=== PATIENT | male | born 1950 | race Caucasian/White ===

== ENCOUNTER 2018-08-19 12:36 | Inpatient (IN) ==
--- NOTE | 2018-08-19 12:51 | Emergency Department Note ---
General Adult HPI - General Chief complaint: Weakness Stated complaint: weakness, increased urination Time Seen by Provider: 08/19/18 12:46 Source: patient Mode of arrival: ambulatory Limitations: no limitations - History of Present Illness HPI Narrative: 68 year old male new to [facility] with history of CHF managed on Amlodipine 10mg twice daily, Nebivolol 20mg daily, Lisinopril-HCTZ 20-12.5 2 tablet daily, Furosemide 40mg daily, hasn't taken any of these medications in the past week, with history of DM type II, managed on Meformin 1000mg twice daily, unknown what or when last A1c was presenting with generalized weakness, fatigue over the past 3 days. No dyspnea at rest, mild dyspnea with exertion. No fevers, chills nor sweats. - Related Data Home Medications Medication Instructions Recorded Confirmed Aspirin [Lite Coat Aspirin] 325 mg PO DAILY 08/19/18 08/19/18 Atorvastatin [Lipitor] 40 mg PO HS 08/19/18 08/19/18 Furosemide [Lasix] 40 mg PO DAILY 08/19/18 08/19/18 Glimepiride [Amaryl] 2 mg PO BID 08/19/18 08/19/18 Lisinopril/Hctz 20/12.5MG 2 tab PO DAILY 08/19/18 08/19/18 [Zestoretic 20/12.5MG] Naproxen Sodium [All Day Pain 3 tab PO DAILY PRN 08/19/18 08/19/18 Relief] Nebivolol HCl [Bystolic] 20 mg PO DAILY 08/19/18 08/19/18 amLODIPine [Norvasc] 10 mg PO DAILY 08/19/18 08/19/18 metFORMIN [Glucophage] 1,000 mg PO BIDCC 08/19/18 08/19/18 Allergies Allergy/AdvReac Type Severity Reaction Status Date / Time No Known Drug Allergies Allergy Verified 08/19/18 12:40 Review of Systems All systems ED: reviewed and negative except as stated. Past Medical History - Past Medical History Attestation: Yes: The following information was validated with the patient. - Social History smoking status: Former smoker Physical Exam Limitations: no limitations General appearance: alert, in distress Head: atraumatic, normocephalic Eye: Present: normal appearance, PERRL, EOMI ENT: normal exam, normal oropharynx, mucous membranes dry Neck: Present: normal inspection, full ROM Chest: Present: normal inspection, symmetric chest wall rise Respiratory: Present: normal lung sounds bilaterally. Absent: respiratory distress, rales/crackles, wheezes Cardiovascular: Present: regular rate, normal rhythm, normal heart sounds Abdominal: Present: soft. Absent: distention, tenderness, guarding Course Vital Signs Temperature 97.5 F 08/19/18 12:36 Pulse Rate 50 L 08/19/18 12:36 Respiratory Rate 16 08/19/18 12:36 Blood Pressure 146/118 08/19/18 12:36 Pulse Oximetry (%) 99 08/19/18 12:36 Temperature 97.2 F 08/19/18 16:06 Pulse Rate 59 L 08/20/18 07:01 Respiratory Rate 13 08/20/18 07:01 Blood Pressure 136/65 08/20/18 07:01 Pulse Oximetry (%) 98 08/20/18 07:01 Medical Decision Making - [facility] [place] Narrative Medical decision making narrative: Patient presenting in DKA, with glucose 600, beta hydroxybutyrate of 7. Given 10 units insulin x 2 bolus, started on 0.1u/kg/hr insulin drip. potassium 5.5, monitored. patient found to be in atrial fibrillation with RVR, rate controlled with IV Labetaolol 10mg. Admitted to hospitalist service, Dr. Grijalva accepting admission. - Lab Data Lab results reviewed: Yes I reviewed the patient's lab results. Result diagrams: 08/20/18 04:15 08/20/18 04:15 Lab Results 08/19/18 08/19/18 08/19/18 Range/Units 12:22 12:22 12:54 WBC (4.5-11.0) K/mcL RBC (4.50-5.90) M/mcL Hgb (13.5-16.5) g/dL Hct (41.0-55.0) % POC Hct (41.0-55.0) % MCV (80.0-100.0) fL MCH (26.0-34.0) pg MCHC (31.0-36.0) g/dL RDW (11.5-14.5) % Plt Count (140-440) K/mcL MPV (7.4-10.4) fL Gran % (38.0-78.0) % Lymph % (Auto) (15.5-49.0) % [place] % (Auto) (1.0-12.0) % Eos % (Auto) (0.0-7.0) % Baso % (Auto) (0.0-2.0) % Gran # (1.8-8.0) K/mcL Lymph # (Auto) (1.5-4.8) K/mcL [place] # (Auto) (0.1-0.9) K/mcL Eos # (Auto) (0.0-0.7) K/mcL Baso # (Auto) (0.0-0.3) K/mcL VBG Lactic Acid (0.5-2.0) mmol/L POC Sodium (133-145) mmol/L Sodium 130 L (133-145) mmol/L POC Potassium (3.3-5.1) mmol/L Potassium 5.7 H (3.3-5.1) mmol/L POC Chloride (96-108) mmol/L Chloride 88 L (96-108) mmol/L Carbon Dioxide 14 L (22-30) mmol/L POC Total CO2 (22-30) mmol/L Anion Gap 28.0 H (8-16) POC BUN (8-23) mg/dl BUN 32 H (8-23) mg/dl Creatinine 1.2 (0.7-1.2) mg/dl POC Creatinine (0.7-1.2) mg/dl GFR Calculation 61 Glucose 517 H* (70-105) mg/dL POC Glucose (70-105) mg/dL Calcium 9.4 (8.6-10.4) mg/dl POC WB Ioniz Calcium (1.16-1.32) mmol/L Total Bilirubin 0.6 (0.0-1.0) mg/dL AST 21 (0-37) U/l ALT 26 (0-40) U/l Alkaline Phosphatase 128 H (39-117) U/L Troponin T (0-0.03) ng/ml NT-Pro-B Natriuret Pep 635.6 H (0-125) pg/ml Total Protein 7.2 (5.9-8.4) gm/dL Albumin 3.9 (3.2-5.2) gm/dL Globulin 3.3 (2.2-3.7) gm/dL Albumin/Globulin Ratio 1.2 (1.0-2.3) Amylase 64 (28-100) U/L Lipase 92 H (7-60) U/L Beta-Hydroxybutyrate (< 0.27) mmol/L Procalcitonin < 0.10 (<0.10) ng/mL 08/19/18 08/19/18 08/19/18 Range/Units 12:55 12:55 12:55 WBC 18.7 H (4.5-11.0) K/mcL RBC 5.53 (4.50-5.90) M/mcL Hgb 17.2 H (13.5-16.5) g/dL Hct 52.3 (41.0-55.0) % POC Hct 53.0 (41.0-55.0) % MCV 94.7 (80.0-100.0) fL MCH 31.1 (26.0-34.0) pg MCHC 32.8 (31.0-36.0) g/dL RDW 12.7 (11.5-14.5) % Plt Count 300 (140-440) K/mcL MPV 10.8 H (7.4-10.4) fL Gran % 77.4 (38.0-78.0) % Lymph % (Auto) 18.3 (15.5-49.0) % [place] % (Auto) 4.0 (1.0-12.0) % Eos % (Auto) 0.1 (0.0-7.0) % Baso % (Auto) 0.2 (0.0-2.0) % Gran # 14.5 H (1.8-8.0) K/mcL Lymph # (Auto) 3.4 (1.5-4.8) K/mcL [place] # (Auto) 0.7 (0.1-0.9) K/mcL Eos # (Auto) 0 (0.0-0.7) K/mcL Baso # (Auto) 0 (0.0-0.3) K/mcL VBG Lactic Acid (0.5-2.0) mmol/L POC Sodium 130 L (133-145) mmol/L Sodium (133-145) mmol/L POC Potassium 5.5 H (3.3-5.1) mmol/L Potassium (3.3-5.1) mmol/L POC Chloride 96 (96-108) mmol/L Chloride (96-108) mmol/L Carbon Dioxide (22-30) mmol/L POC Total CO2 17 L (22-30) mmol/L Anion Gap (8-16) POC BUN 34 H (8-23) mg/dl BUN (8-23) mg/dl Creatinine (0.7-1.2) mg/dl POC Creatinine 1.1 (0.7-1.2) mg/dl GFR Calculation Glucose (70-105) mg/dL POC Glucose 498 H* (70-105) mg/dL Calcium (8.6-10.4) mg/dl POC WB Ioniz Calcium 1.09 L (1.16-1.32) mmol/L Total Bilirubin (0.0-1.0) mg/dL AST (0-37) U/l ALT (0-40) U/l Alkaline Phosphatase (39-117) U/L Troponin T < 0.01 (0-0.03) ng/ml NT-Pro-B Natriuret Pep (0-125) pg/ml Total Protein (5.9-8.4) gm/dL Albumin (3.2-5.2) gm/dL Globulin (2.2-3.7) gm/dL Albumin/Globulin Ratio (1.0-2.3) Amylase (28-100) U/L Lipase (7-60) U/L Beta-Hydroxybutyrate 7.01 H (< 0.27) mmol/L Procalcitonin (<0.10) ng/mL 08/19/18 Range/Units 13:06 WBC (4.5-11.0) K/mcL RBC (4.50-5.90) M/mcL Hgb (13.5-16.5) g/dL Hct (41.0-55.0) % POC Hct (41.0-55.0) % MCV (80.0-100.0) fL MCH (26.0-34.0) pg MCHC (31.0-36.0) g/dL RDW (11.5-14.5) % Plt Count (140-440) K/mcL MPV (7.4-10.4) fL Gran % (38.0-78.0) % Lymph % (Auto) (15.5-49.0) % [place] % (Auto) (1.0-12.0) % Eos % (Auto) (0.0-7.0) % Baso % (Auto) (0.0-2.0) % Gran # (1.8-8.0) K/mcL Lymph # (Auto) (1.5-4.8) K/mcL [place] # (Auto) (0.1-0.9) K/mcL Eos # (Auto) (0.0-0.7) K/mcL Baso # (Auto) (0.0-0.3) K/mcL VBG Lactic Acid 2.1 H (0.5-2.0) mmol/L POC Sodium (133-145) mmol/L Sodium (133-145) mmol/L POC Potassium (3.3-5.1) mmol/L Potassium (3.3-5.1) mmol/L POC Chloride (96-108) mmol/L Chloride (96-108) mmol/L Carbon Dioxide (22-30) mmol/L POC Total CO2 (22-30) mmol/L Anion Gap (8-16) POC BUN (8-23) mg/dl BUN (8-23) mg/dl Creatinine (0.7-1.2) mg/dl POC Creatinine (0.7-1.2) mg/dl GFR Calculation Glucose (70-105) mg/dL POC Glucose (70-105) mg/dL Calcium (8.6-10.4) mg/dl POC WB Ioniz Calcium (1.16-1.32) mmol/L Total Bilirubin (0.0-1.0) mg/dL AST (0-37) U/l ALT (0-40) U/l Alkaline Phosphatase (39-117) U/L Troponin T (0-0.03) ng/ml NT-Pro-B Natriuret Pep (0-125) pg/ml Total Protein (5.9-8.4) gm/dL Albumin (3.2-5.2) gm/dL Globulin (2.2-3.7) gm/dL Albumin/Globulin Ratio (1.0-2.3) Amylase (28-100) U/L Lipase (7-60) U/L Beta-Hydroxybutyrate (< 0.27) mmol/L Procalcitonin (<0.10) ng/mL - EKG Data EKG #1 Rate: tachycardia Rhythm: A.Fib Interpretation: other (atrial fibrillation with RVR) Disposition Pt seen by [facility]/PA only: No Clinical Impression: DKA (diabetic ketoacidoses) Qualifiers: Diabetes mellitus type: type 1 Diabetes mellitus complication detail: without coma Qualified Code(s): E10.10 - Type 1 diabetes mellitus with ketoacidosis without coma Disposition: Xfer As Inpt ([facility]) Condition: Fair
[2018-08-19] MEDS ORDERED: LABETALOL 5 MG/ML ML IV ONE (12:59)
[2018-08-19] MEDS ORDERED: INSULIN REGULAR, HUMAN 1 UNIT/0.01 ML UNIT IV ONE ×2 (12:59→14:12)
[2018-08-19 13:33] LABS: Basophils # (Auto) 0 K/mcL (0.0-0.3); Basophils % (Auto) 0.2 % (0.0-2.0); Eosinophils # (Auto) 0 K/mcL (0.0-0.7); Eosinophils % (Auto) 0.1 % (0.0-7.0); Granulocytes % (Auto) 77.4 % (38.0-78.0); Lymphocytes # (Auto) 3.4 K/mcL (1.5-4.8); Lymphocytes % (Auto) 18.3 % (15.5-49.0); Mean Cell Volume 94.7 fL (80.0-100.0); Mean Corpuscular HGB Conc 32.8 g/dL (31.0-36.0); Monocytes # (Auto) 0.7 K/mcL (0.1-0.9); Platelet Count 300 K/mcL (140-440); RBC 5.53 M/mcL (4.50-5.90); Red Cell Distribution Width 12.7 % (11.5-14.5)
--- NOTE | 2018-08-19 13:51 | XRay Report ---
INDICATION: Weakness TECHNIQUE: PA and lateral upright chest x-ray COMPARISON: None FINDINGS:Lungs are negative. No parenchymal infiltrate or mass. No focal pulmonary parenchymal abnormality. Heart size and vascularity are normal. Lise and mediastinum are negative. No acute or focal abnormality. IMPRESSION: Negative PA and lateral chest x-ray Interpreted and Authenticated by: Ant Bui 08/19/18
[2018-08-19 13:57] LABS: ALT/SGPT 26 U/l (0-40); Albumin 3.9 gm/dL (3.2-5.2); Albumin/Globulin Ratio 1.2 (1.0-2.3); Alkaline Phosphatase 128 U/L (39-117); Blood Urea Nitrogen 32 mg/dl (8-23); proBNP 635.6 pg/ml (0-125)
[2018-08-19 14:06] LABS: Beta Hydroxybutyrate 7.01 mmol/L (< 0.27)
[2018-08-19] MEDS ORDERED: 0.9 % SODIUM CHLORIDE 1,000 ML IV ONE (14:15)
[2018-08-19] MEDS ORDERED: INSULIN REGULAR, HUMAN 50 UNIT in 0.9 % SODIUM CHLORIDE 99.5 ML IV SCH ×2 (14:15→16:06)
[2018-08-19] MEDS ORDERED: DILTIAZEM 25 MG/5 ML VIAL IV ONE ×3 (14:22→16:21)
--- NOTE | 2018-08-19 15:04 | Internal Med History&Physical ---
Medical - H&P: [facility] Patient information: Note initiated : 08/19/18 at 3:01 pm Service Date, if different from initiated Date: [] Patient: Nitin Oreilly a 68 y/o M admitted on for weakness, increased urination. Chief Complaint: [] History of present illness: Mr. Oreilly is a 68 year old M with history of hypertension and diabetes presents to the emergency room for not feeling well, increased thirst weakness and polyuria that has been going on for the last 4 to 5 days. The patient is a resident of [place], he drove here 4 days ago, the patient notes that he has not been feeling well since, his symptoms are increased thirst, increased desire to pee, the patient also complains about abdominal pain for the last 3 to 4 days epigastric periumbilical in nature dull ache intermittent in nature nonradiating no aggravating relieving factors feels like he wants to eat something but thinks that if he tries to eat something he will vomit. The patient denies any fever chills some nausea if he tries to eat otherwise no vomiting last bowel movement 2 days ago is passing gas no cough no chest pain no shortness of breath no palpitations or dizziness no headache changes in vision no difficulty in swallowing no new skin rashes joint pains no depression or anxiety reported. He was seen by a new doctor in [place] according to him made some changes to his medications. He takes metformin for his diabetes as well as some blood pressure pills. On presentation to the emergency room patient was afebrile heart rate 140 blood pressure 146 oh 118 saturating 99% on room air chest x-ray was negative labs showed leukocytosis 18.7 hemoglobin 17.2 platelets 300 lactic acid 2.1 anion gap 28 sodium 130 potassium 5.7 bicarbonate 14 chloride 88 creatinine 1.2 glucose 517 by the hydroxybutyrate 7.01 Patient was given IV fluids started on insulin drip given some Cardizem and admitted to the hospital for further management All systems: reviewed and no additional remarkable complaints except as stated Medical - H&P: PMH Medical history: DM HTN Obesity Surgical history: Right index finger amputation Family history: reviewed and not pertinent Pertinent family history: Mother with DM Social history: denies drug use, last etoh 15 yrs ago quit smoking 1 yr ago Medical - H&P: Meds Home Medications Medication Instructions Recorded Confirmed Type Atorvastatin [Lipitor] 40 mg PO HS 05/11/19 05/11/19 History Furosemide [Lasix] 40 mg PO DAILY 08/19/18 08/19/18 History Glimepiride [Amaryl] 2 mg PO BID 08/19/18 08/19/18 History Lisinopril/Hctz 20/12.5MG 2 tab PO DAILY 08/19/18 08/19/18 History [Zestoretic 20/12.5MG] Nebivolol HCl [Bystolic] 20 mg PO DAILY 08/19/18 08/19/18 History amLODIPine [Norvasc] 10 mg PO DAILY 08/19/18 08/19/18 History metFORMIN [Glucophage] 1,000 mg PO BIDCC 08/19/18 08/19/18 History Allergies Allergy/AdvReac Type Severity Reaction Status Date / Time No Known Drug Allergies Allergy Verified 08/19/18 12:40 Medical - H&P: Exam - Constitutional Vitals: Temp Pulse Resp BP Pulse Ox 97.5 F 79 26 H 112/87 96 08/19/18 12:36 08/19/18 14:31 08/19/18 14:49 08/19/18 14:47 08/19/18 14:31 Exam: GENERAL: The patient is a well-developed, well-nourished in no apparent distress. Is alert and oriented x3. VITAL SIGNS: Reviewed and as noted elsewhere. HEENT: Head is normocephalic and atraumatic. Extraocular muscles are intact. Pupils are equal, round, and reactive to light. Nares appeared normal. Mouth appears any without lesions. Mucous membranes are dry. NECK: Normal to inspection, Supple, No lymphadenopathy or thyromegaly. LUNGS: Air entry equal on both sides, no wheezing, crackles or rhonchi noted. No accessory muscles of respiration HEART: tachycardic, irregular rate and rhythm , S1 and S2 heard, no Gallop, S3 or Rub Noted, No Gross murmur heard. ABDOMEN: Soft, nontender, and nondistended. Positive bowel sounds. No hepatosplenomegaly was noted. EXTREMITIES: No cyanosis, clubbing, rash, lesions or edema. NEUROLOGIC: Cranial nerves II through XII are grossly intact. Motor and Sensory System Grossly Intact PSYCHIATRIC: Normal affect, Normal Mood. Appropriate Behavior. SKIN: No ulceration or wounds noted, No jaundice, No rash noted. Medical - H&P: Reslt - Labs CBC & Chem 7: 08/19/18 12:55 08/19/18 12:54 Labs: Short CBC 08/19/18 Range/Units 12:55 WBC 18.7 H (4.5-11.0) K/mcL Hgb 17.2 H (13.5-16.5) g/dL Hct 52.3 (41.0-55.0) % Plt Count 300 (140-440) K/mcL BMP 08/19/18 12:54 Sodium 130 L Potassium 5.7 H Chloride 88 L Carbon Dioxide 14 L BUN 32 H Creatinine 1.2 Glucose 517 H* Calcium 9.4 Cardiac Enzymes 08/19/18 Range/Units 12:55 Troponin T < 0.01 (0-0.03) ng/ml Liver Function 08/19/18 Range/Units 12:54 Total Bilirubin 0.6 (0.0-1.0) mg/dL AST 21 (0-37) U/l ALT 26 (0-40) U/l Alkaline Phosphatase 128 H (39-117) U/L Albumin 3.9 (3.2-5.2) gm/dL Medical - H&P: A/P - Narrative A/P Narrative: A/P DKA with hyperglycemia -IV fluids, IV insulin drip, manage per protocol -was only taking metformin. Atrial fibrillation with RVR - likely triggered by dka, -IV cardizem prn, resume home meds -will need to start on anticoagulation for CVA prophylaxis. Major risks benefits of the medication discussed, all questions answered. -get echo Abdominal pain -etiology? due to DKA -check lipase/amylase -Get CT abdomen and pelvis HTN -BP elevated, resume home meds DVT hep sq Diet npo Full code.
[2018-08-19 15:17] LABS: Amylase 64 U/L (28-100); Lipase 92 U/L (7-60)
[2018-08-19] MEDS ORDERED: VANCOMYCIN PER PHARMACY IV ONE (16:06)
[2018-08-19] MEDS ORDERED: NALOXONE HCL 0.4 MG/ML VIAL IV PRN (16:06)
[2018-08-19] MEDS ORDERED: 0.9 % SODIUM CHLORIDE 1,000 ML IV SCH (16:06)
[2018-08-19] MEDS ORDERED: DEXTROSE 50% 50 ML SYRINGE IV PRN (16:06)
[2018-08-19] MEDS ORDERED: ACETAMINOPHEN 325 MG TABLET PO PRN (16:06)
[2018-08-19] MEDS: 0.9 % SODIUM CHLORIDE 10 ML SYRINGE IV SCH ×2 (16:22→22:51)
[2018-08-19 17:06] LABS: ABG Methemoglobin 0 % (0.4-1.5); VBG Base Excess -2.4 (-2.0-2.0); VBG HCO3 19.7 mmol/L (24.0-28.0); VBG Oxygen Saturation 95.7 % (40.0-70.0); VBG PH 7.47 U (7.32-7.42); VBG PO2 140 mmHg (25-40); VBG Total CO2 20.6 mmol/L (25.0-29.0)
[2018-08-19] MEDS ORDERED: METOPROLOL TARTRATE 5 MG/5 ML VIAL IV PRN (17:26)
[2018-08-19] MEDS ORDERED: LORazepam 2 MG/ML VIAL IV ONE (18:44)
[2018-08-19] MEDS: DEXTROSE 5%-NS 1,000 ML IV SCH (19:05)
[2018-08-19] MEDS: PIPERACILLIN SODIUM/TAZOBACTAM 3.375 GM in DEXTROSE 5% IN WATER 50 ML IV SCH (19:11)
[2018-08-19] MEDS: VANCOMYCIN 1,500 MG in 0.9 % SODIUM CHLORIDE 500 ML IV SCH (20:14)
[2018-08-19 21:14] LABS: Appearance,Urine CLEAR; Bacteria,Urine 0 /hpf (0); Bilirubin,Urine NEG (NEG); Color,Urine YELLOW; Glucose,Urine (UA) >=500 mg/dL (NEG); Leukocyte Esterase,Urine NEG /uL (NEG); Mucus,Urine FEW /hpf (0); Protein,Urine NEG (NEG); Specific Gravity,Urine 1.029 (1.000-1.035); Urine Blood NEG mg/dL (<0.03); Urine RBC 1 /hpf (0-1); Urine Squamous Epithelial Cell 0 /hpf (0-4); Urine WBC 1 /hpf (0-4); Urobilinogen,Urine NEG (NEG)
[2018-08-19] MEDS ORDERED: LORazepam 2 MG/ML VIAL ONE (21:24)
[2018-08-19] MEDS ORDERED: IOPAMIDOL 100 ML BOTTLE IV ONE (22:09)
[2018-08-19] MEDS: HEPARIN 5,000 UNIT/ML VIAL SQ SCH (22:56)
[2018-08-20] MEDS: PIPERACILLIN SODIUM/TAZOBACTAM 3.375 GM in DEXTROSE 5% IN WATER 50 ML IV SCH ×5 (00:09→23:53)
[2018-08-20] MEDS ORDERED: INSULIN REGULAR, HUMAN 1 UNIT/0.01 ML UNIT ONE (01:19)
[2018-08-20 05:41] LABS: Basophils # (Auto) 0 K/mcL (0.0-0.3); Basophils % (Auto) 0.2 % (0.0-2.0); Eosinophils # (Auto) 0.1 K/mcL (0.0-0.7); Eosinophils % (Auto) 0.7 % (0.0-7.0); Granulocytes % (Auto) 66.4 % (38.0-78.0); Lymphocytes % (Auto) 23.9 % (15.5-49.0); Mean Cell Volume 94.4 fL (80.0-100.0); Mean Corpuscular HGB Conc 33.6 g/dL (31.0-36.0); Monocytes # (Auto) 1.1 K/mcL (0.1-0.9); Monocytes % (Auto) 8.8 % (1.0-12.0); Platelet Count 205 K/mcL (140-440); RBC 4.57 M/mcL (4.50-5.90); Red Cell Distribution Width 12.9 % (11.5-14.5)
[2018-08-20 06:11] LABS: ALT/SGPT 17 U/l (0-40); Albumin 2.9 gm/dL (3.2-5.2); Albumin/Globulin Ratio 1.1 (1.0-2.3); Alkaline Phosphatase 82 U/L (39-117); Bilirubin,Direct < 0.2 mg/dL (0.0-0.3); Blood Urea Nitrogen 25 mg/dl (8-23); Gamma Glutamyl Transpeptidase 16 U/L (8-61); Uric Acid 4.9 mg/dL (2.5-8.0)
--- NOTE | 2018-08-20 06:19 | Cat Scan Report ---
CLINICAL INFORMATION: Abdominal pain COMPARISON: None. TECHNIQUE: Axial images were obtained through the abdomen and pelvis. Sagittally and coronally reformatted images. 80 mL contrast material injected intravenously. Oral contrast material was given FINDINGS: Lung bases are negative. No parenchymal infiltrate or mass. No focal pulmonary parenchymal abnormality. There is no pleural fluid. There is no pericardial fluid. There is no significant hiatal hernia. Findings consistent with hepatic steatosis. No hepatic mass. Liver contour is smooth. There are multiple calcified gallstones. No gallbladder wall thickening or pericholecystic fluid. No evidence for cholecystitis. No duct dilatation. Spleen is not enlarged. Normal enhancement splenic and portal veins. Negative pancreas. No pancreatic mass. No peripancreatic abnormality. No evidence for pancreatitis. Negative adrenal glands. Kidneys are negative. No solid or cystic mass. There is a small nonobstructing left lower pole stone. There is no hydronephrosis or hydroureter. No bladder calculus. Negative colon. No detectable mass. No diverticulitis. Appendix is not well-visualized but there is no evidence for appendicitis. There is no mechanical small bowel obstruction. No pneumoperitoneum. No biliary or portal venous gas. No pneumatosis. No intra-abdominal abscess. There is calcification of the abdominal aorta. No abdominal aortic aneurysm. Lumbar spine, sacrum, pelvis are negative. No acute abnormalities. There is degenerative disc disease at L5-S1. There is a 3.0 cm umbilical hernia. This contains only mesenteric fat. There is no bowel within the hernia. Examination was initially interpreted by [facility] IMPRESSION: 1. Cholelithiasis. 2. Nonobstructing left lower pole renal stone 3. Atherosclerosis. No abdominal aortic aneurysm. 4. Probable hepatic steatosis 5. Umbilical hernia contains only mesenteric fat The exam was performed using radiation dose optimization techniques including, but not limited to, automated exposure control, adjustment of the mA and/or kV according to patient size and use of iterative reconstruction technique. Interpreted and Authenticated by: Ant Bui 08/20/18
[2018-08-20] MEDS ORDERED: VANCOMYCIN PER PHARMACY IV SCH ×2 (07:30→11:22)
[2018-08-20] MEDS: 0.9 % SODIUM CHLORIDE 10 ML SYRINGE IV SCH ×3 (07:55→21:52)
[2018-08-20] MEDS: DEXTROSE 5%-NS 1,000 ML IV SCH (08:58)
[2018-08-20] MEDS ORDERED: INSULIN GLARGINE, HUMAN 1 UNIT/0.01 ML SQ SCH (09:00)
[2018-08-20] MEDS: HEPARIN 5,000 UNIT/ML VIAL SQ SCH ×2 (09:50→22:02)
[2018-08-20] MEDS: VANCOMYCIN 1,500 MG in 0.9 % SODIUM CHLORIDE 500 ML IV SCH (09:50)
[2018-08-20 10:13] LABS: Blood Urea Nitrogen 22 mg/dl (8-23)
[2018-08-20] MEDS ORDERED: 0.9 % SODIUM CHLORIDE 1,000 ML IV SCH (10:15)
[2018-08-20] MEDS ORDERED: DEXTROSE 31 GM ORAL.SUSP PO PRN ×2 (10:15→11:22)
[2018-08-20] MEDS ORDERED: DEXTROSE 50% 50 ML VIAL IV PRN ×2 (10:15→11:22)
--- NOTE | 2018-08-20 10:19 | Internal Med Progress Note ---
Medical - PN: Subj Patient information: Note initiated : 08/20/18 at 10:17 am Service Date, if different from initiated Date: [] Patient: Nitin Oreilly a 68 y/o M admitted on 08/19/18 for weakness, increased urination. Chief Complaint: [] Interval history: Mr. Oreilly is a 68 year old M with history of hypertension and diabetes presents to the emergency room for not feeling well, increased thirst weakness and polyuria that has been going on for the last 4 to 5 days. The patient is a resident of [place], he drove here 4 days ago, the patient notes that he has not been feeling well since, his symptoms are increased thirst, increased desire to pee, the patient also complains about abdominal pain for the last 3 to 4 days epigastric periumbilical in nature dull ache intermittent in nature nonradiating no aggravating relieving factors feels like he wants to eat something but thinks that if he tries to eat something he will vomit. The patient denies any fever chills some nausea if he tries to eat otherwise no vomiting last bowel movement 2 days ago is passing gas no cough no chest pain no shortness of breath no palpitations or dizziness no headache changes in vision no difficulty in swallowing no new skin rashes joint pains no depression or anxiety reported. He was seen by a new doctor in [place] according to him made some changes to his medications. He takes metformin for his diabetes as well as some blood pressure pills. On presentation to the emergency room patient was afebrile heart rate 140 blood pressure 146 oh 118 saturating 99% on room air chest x-ray was negative labs showed leukocytosis 18.7 hemoglobin 17.2 platelets 300 lactic acid 2.1 anion gap 28 sodium 130 potassium 5.7 bicarbonate 14 chloride 88 creatinine 1.2 glucose 517 by the hydroxybutyrate 7.01 Patient was given IV fluids started on insulin drip given some Cardizem and admitted to the hospital for further management 08/20 Patient seen examined, no acute ovenright issues, feels better feels hungry lactic acidosis resolved, anion gap closed, bet ahydroxybutyrate mildly elevated but significantly improved d/c insulin ggt and start on sq insulin. resume diet xfer to med surg Pertinent ROS: Denies headache, dizziness Denies chest pain, palpitations Denies cough or shortness of breath Denies abdominal pain, nausea or vomiting. - Constitutional Vitals: Vital Signs Temp Pulse Resp BP Pulse Ox 98.4 F 73 16 149/89 96 08/20/18 08:01 08/20/18 09:00 08/20/18 10:01 08/20/18 10:01 08/20/18 10:01 Period Temp Pulse Resp BP Sys/Drake Pulse Ox Last 24 Hr 97.2 F-98.4 F 50-156 10-26 93-198/47-160 88-99 Intake and Output 08/19/18 08/20/18 08/20/18 21:59 05:59 13:59 Intake Total 7347 802 0530 Output Total 325 125 Balance 1508 35 1069 Weight 271 lb 9.6 oz Intake & Output: Intake & Output 08/19/18 08/20/18 08/20/18 21:59 05:59 13:59 Intake Total 4662 278 9319 Output Total 325 125 Balance 1508 35 1069 Weight 271 lb 9.6 oz Intake: IV 3124 039 3489 Sodium Chloride 0.9% 1,000 ml @ 787 250 mls/hr IV .Q4H [facility] Rx#: [id number] Dextrose 5%-Ns IV Solution 1, 1000 000 ml @ 100 mls/hr IV .Q10H [facility] Rx#:[id number] HumuLIN R 50 UNIT In Sodium 73 23 19 Chloride 0.9% 99.5 ml @ 13 UNIT /HR 26 mls/hr IV DUR [facility] Rx#: [id number] Zosyn 3.375 gm In Dextrose 5% 50 50 50 in Water 50 ml @ 100 mls/hr IV Q6H [facility] Rx#:[id number] Vancomycin 1,500 mg In Sodium 500 Chloride 0.9% 500 ml @ 333.3 mls/hr IV Q12H [facility] Rx#: [id number] Oral 210 60 Output: Void Amount 325 125 Exam: Constitutional; Afebrile, cooperative, alert, not in distress. Respiratory system: Air Entry equal on both sides, No crackles or wheezing, no rhonchi. CVS- Rate rhythm regular, S1,S2 heard, no gallop, no rub. Abdomen- Soft nontender abdomen, no organomegaly, no tenderness, no guarding or rigidity, GAMING INVESTIGATOR- AOOx3, moving all extremities, no gross focal deficit noted. Medical - PN: Obj Da - Labs CBC & Chem 7: 08/20/18 04:15 08/20/18 09:16 Labs: Abnormal Lab Results 08/20/18 08/20/18 08/20/18 09:16 09:16 04:15 WBC Hgb MPV Gran # Sibley # (Auto) ABG Methemoglobin VBG pH VBG pCO2 VBG pO2 VBG HCO3 VBG Total CO2 VBG O2 Saturation VBG Base Excess VBG Lactic Acid Carboxyhemoglobin POC Sodium Sodium POC Potassium Potassium Chloride Carbon Dioxide POC Total CO2 Anion Gap POC BUN BUN Glucose 215 H POC Glucose Calcium 8.3 L POC WB Ioniz Calcium Phosphorus Alkaline Phosphatase NT-Pro-B Natriuret Pep Total Protein Albumin Lipase Beta-Hydroxybutyrate 1.14 H 1.58 H Urine Glucose (UA) Urine Ketones 08/20/18 08/20/18 08/19/18 04:15 04:15 20:37 WBC 12.5 H Hgb MPV Gran # 8.3 H S[place]y # (Auto) 1.1 H ABG Methemoglobin VBG pH VBG pCO2 VBG pO2 VBG HCO3 VBG Total CO2 VBG O2 Saturation VBG Base Excess VBG Lactic Acid Carboxyhemoglobin POC Sodium Sodium POC Potassium Potassium Chloride Carbon Dioxide POC Total CO2 Anion Gap POC BUN BUN 25 H Glucose 249 H POC Glucose Calcium 8.2 L POC WB Ioniz Calcium Phosphorus Alkaline Phosphatase NT-Pro-B Natriuret Pep Total Protein 5.5 L Albumin 2.9 L Lipase Beta-Hydroxybutyrate Urine Glucose (UA) >=500 A Urine Ketones 20 A 08/19/18 08/19/18 08/19/18 19:18 16:28 16:28 WBC Hgb MPV Gran # Sibley # (Auto) ABG Methemoglobin VBG pH VBG pCO2 VBG pO2 VBG HCO3 VBG Total CO2 VBG O2 Saturation VBG Base Excess VBG Lactic Acid 2.7 H Carboxyhemoglobin POC Sodium Sodium POC Potassium Potassium Chloride Carbon Dioxide POC Total CO2 21 L Anion Gap POC BUN 34 H BUN Glucose POC Glucose 204 H Calcium POC WB Ioniz Calcium 1.05 L Phosphorus 2.5 L Alkaline Phosphatase NT-Pro-B Natriuret Pep Total Protein Albumin Lipase Beta-Hydroxybutyrate Urine Glucose (UA) Urine Ketones 08/19/18 08/19/18 08/19/18 16:28 13:06 12:55 WBC Hgb MPV Gran # Sibley # (Auto) ABG Methemoglobin 0 L VBG pH 7.47 H VBG pCO2 28.0 L VBG pO2 140 H VBG HCO3 19.7 L VBG Total CO2 20.6 L VBG O2 Saturation 95.7 H VBG Base Excess -2.4 L VBG Lactic Acid 2.1 H Carboxyhemoglobin 3.6 H POC Sodium 130 L Sodium POC Potassium 5.5 H Potassium Chloride Carbon Dioxide POC Total CO2 17 L Anion Gap POC BUN 34 H BUN Glucose POC Glucose 498 H* Calcium POC WB Ioniz Calcium 1.09 L Phosphorus Alkaline Phosphatase NT-Pro-B Natriuret Pep Total Protein Albumin Lipase Beta-Hydroxybutyrate 7.01 H Urine Glucose (UA) Urine Ketones 08/19/18 08/19/18 08/19/18 12:55 12:54 12:22 WBC 18.7 H Hgb 17.2 H MPV 10.8 H Gran # 14.5 H S[place]y # (Auto) ABG Methemoglobin VBG pH VBG pCO2 VBG pO2 VBG HCO3 VBG Total CO2 VBG O2 Saturation VBG Base Excess VBG Lactic Acid Carboxyhemoglobin POC Sodium Sodium 130 L POC Potassium Potassium 5.7 H Chloride 88 L Carbon Dioxide 14 L POC Total CO2 Anion Gap 28.0 H POC BUN BUN 32 H Glucose 517 H* POC Glucose Calcium POC WB Ioniz Calcium Phosphorus Alkaline Phosphatase 128 H NT-Pro-B Natriuret Pep 635.6 H Total Protein Albumin Lipase 92 H Beta-Hydroxybutyrate Urine Glucose (UA) Urine Ketones Meds: Medications Acetaminophen (Tylenol) 650 mg PO Q4-6HP PRN PRN Reason: PAIN/FEVER > 101 Dextrose (Dextrose 50%) 50 ml IV ONCE PRN PRN Reason: Hypoglycemia Dextrose (Dextrose 50%) 0 ml IV UD PRN PRN Reason: Hypoglycemia Diagnostic Test (Pha) (Accu-Chek) 1 each FS Q1 [facility] Last Admin: 08/20/18 10:05 Dose: 1 each Documented by: Diagnostic Test (Pha) (Accu-Chek) 1 each FS ACHS [facility] Glucose (Insta-Glucose) 15 gm PO PRN PRN PRN Reason: Hypoglycemia Heparin Sodium (Porcine) (Heparin) 5,000 unit SQ Q12 [facility] Last Admin: 08/20/18 09:50 Dose: 5,000 unit Documented by: Piperacillin Sod/Tazobactam (Sod 3.375 gm/ Dextrose) 50 mls @ 100 mls/hr IV Q6H [facility]; Protocol Last Infusion: 08/20/18 07:46 Dose: Infused Documented by: Vancomycin HCl 1,500 mg/ (Sodium Chloride) 500 mls @ 333.3 mls/hr IV Q12H [facility] Last Admin: 08/20/18 09:50 Dose: 333 mls/hr Documented by: Sodium Chloride (Sodium Chloride 0.9%) 1,000 mls @ 150 mls/hr IV .Q6H40M [facility] Insulin Glargine (Lantus) 20 unit SQ DAILY [facility] Insulin Human Lispro (Humalog) 0 unit SQ ACHS [facility]; Protocol Metoprolol Tartrate (Lopressor) 5 mg IV Q1HP PRN PRN Reason: Tachyarrhythmias Naloxone HCl (Narcan) 0.1 mg IV Q2MIN PRN PRN Reason: Opiate Reversal Sodium Chloride (Saline Flush) 10 ml IV Q8 [facility] Last Admin: 08/20/18 07:55 Dose: Not Given Documented by: Vancomycin HCl (Vancomycin Per Pharmacy) 1 order IV UD [facility]; Protocol - ABG Interpretation ABG results: 08/19/18 16:28 ABG Methemoglobin 0 L VBG pH 7.47 H VBG pCO2 28.0 L VBG pO2 140 H VBG HCO3 19.7 L VBG Total CO2 20.6 L VBG O2 Saturation 95.7 H VBG Base Excess -2.4 L Medical - PN: A/P - Time Spent With Patient Total time spent is greater than 50% in coordination of care (as documented) at patient's floor/unit and/or counseling patient: - Narrative A/P Narrative: A/P DKA with hyperglycemia -resolved -continue with IV fluids -ssi insulin for glucose control Atrial fibrillation with RVR - resolved with fluids and correction of electrolytes -echo shows normal lvef Abdominal pain -due to dka -ct neg for acute pathology, HTN -BP elevated, resume home meds DVT hep sq carb consistent diet. Full code. Medical - PN: Qual - VTE Deep Vein Thrombosis/Pulmonary Embolism Present on Admission: No
[2018-08-20] MEDS ORDERED: ACETAMINOPHEN 325 MG TABLET PO PRN (11:22)
[2018-08-20] MEDS: POLYETHYLENE GLYCOL 3350 17 GM PACKET PO ONE ×2 (11:22→12:40)
[2018-08-20] MEDS ORDERED: NALOXONE HCL 0.4 MG/ML VIAL IV PRN (11:22)
[2018-08-20] MEDS ORDERED: METOPROLOL TARTRATE 5 MG/5 ML VIAL IV PRN (11:22)
[2018-08-20] MEDS ORDERED: DEXTROSE 50% 50 ML SYRINGE IV PRN (11:22)
[2018-08-20] MEDS ORDERED: INSULIN LISPRO 1 UNIT/0.01 ML UNIT SQ SCH (11:30)
[2018-08-20] MEDS: 0.9 % SODIUM CHLORIDE 1,000 ML IV SCH ×2 (12:24→17:05)
[2018-08-20] MEDS: INSULIN LISPRO 1 UNIT/0.01 ML UNIT SQ SCH ×3 (12:35→22:04)
[2018-08-20] MEDS ORDERED: VANCOMYCIN 1,500 MG in 0.9 % SODIUM CHLORIDE 500 ML IV SCH (21:00)
[2018-08-21] MEDS: 0.9 % SODIUM CHLORIDE 1,000 ML IV SCH ×2 (02:25→10:36)
[2018-08-21] MEDS: 0.9 % SODIUM CHLORIDE 10 ML SYRINGE IV SCH ×3 (03:52→16:49)
[2018-08-21 05:11] LABS: Basophils # (Auto) 0.1 K/mcL (0.0-0.3); Basophils % (Auto) 0.6 % (0.0-2.0); Eosinophils # (Auto) 0.2 K/mcL (0.0-0.7); Eosinophils % (Auto) 2.3 % (0.0-7.0); Granulocytes % (Auto) 52.9 % (38.0-78.0); Lymphocytes # (Auto) 3.3 K/mcL (1.5-4.8); Lymphocytes % (Auto) 35.4 % (15.5-49.0); Mean Cell Volume 94.6 fL (80.0-100.0); Mean Corpuscular HGB Conc 32.9 g/dL (31.0-36.0); Monocytes # (Auto) 0.8 K/mcL (0.1-0.9); Monocytes % (Auto) 8.8 % (1.0-12.0); Platelet Count 199 K/mcL (140-440); RBC 4.83 M/mcL (4.50-5.90); Red Cell Distribution Width 12.9 % (11.5-14.5)
[2018-08-21] MEDS: PIPERACILLIN SODIUM/TAZOBACTAM 3.375 GM in DEXTROSE 5% IN WATER 50 ML IV SCH (05:39)
[2018-08-21 05:58] LABS: ALT/SGPT 20 U/l (0-40); Albumin 3.2 gm/dL (3.2-5.2); Albumin/Globulin Ratio 1.2 (1.0-2.3); Alkaline Phosphatase 92 U/L (39-117); Bilirubin,Direct < 0.2 mg/dL (0.0-0.3); Blood Urea Nitrogen 15 mg/dl (8-23); Gamma Glutamyl Transpeptidase 14 U/L (8-61); Uric Acid 2.4 mg/dL (2.5-8.0)
[2018-08-21] MEDS: INSULIN LISPRO 1 UNIT/0.01 ML UNIT SQ SCH ×4 (07:20→16:48)
[2018-08-21] MEDS: HEPARIN 5,000 UNIT/ML VIAL SQ SCH (08:47)
[2018-08-21] MEDS ORDERED: INSULIN GLARGINE, HUMAN 1 UNIT/0.01 ML SQ SCH ×2 (09:00)
[2018-08-21] MEDS ORDERED: FUROSEMIDE 40 MG TABLET PO SCH (09:00)
[2018-08-21] MEDS ORDERED: HYDROCHLOROTHIAZIDE 25 MG TABLET PO SCH (09:00)
[2018-08-21] MEDS ORDERED: NEBIVOLOL HCL 20 MG PO SCH (09:00)
[2018-08-21] MEDS ORDERED: ASPIRIN 325 MG ENTERIC COATED TABLET PO SCH (09:00)
[2018-08-21] MEDS ORDERED: LISINOPRIL/HCTZ 20/12.5MG TABLET PO SCH (09:00)
[2018-08-21] MEDS ORDERED: LISINOPRIL 20 MG TABLET PO SCH (09:00)
[2018-08-21] MEDS ORDERED: amLODIPine 10 MG TABLET PO SCH (09:00)
--- NOTE | 2018-08-21 09:35 | Discharge Summary ---
Medical - DS: Prov Patient information: Note initiated : 08/21/18 at 9:25 am Service Date, if different from initiated Date: [] Patient: Nitin Oreilly 68 y/o M admitted on 08/19/18 for weakness, increased urination. Chief Complaint: [] Date of admission: 08/19/18 15:45 Discharge date: 08/21/18 Consults: 08/19/18 13:44 Consult to Physician [CONS] Stat Comment: Consulting Provider: Lorri Grijalva Reason For Exam: Physician to Consult Discharging clinician: Lorri Grijalva Medical - DS: Meds - Discharge Medications Prescriptions: Blood Sugar Diagnostic [True Metrix Glucose Test Strip] 1 each MC DAILY #100 strip Blood-Glucose Meter [True Metrix Blood Glucose Mtr] 1 each MC DAILY #1 each Insulin Glargine, Human [Lantus] 30 unit SQ DAILY #50 ml Syringe-Needle,Insulin,0.5 ml [Insulin Syringe] 1 each MC DAILY #100 disp.syrin Active and Home Medications: Home Medications Aspirin [Lite Coat Aspirin] 325 mg PO DAILY 08/19/18 [History Confirmed 08/19/18 Last Taken 08/14/18] Atorvastatin [Lipitor] 40 mg PO HS 08/19/18 [History Confirmed 08/19/18 Last Taken 08/14/18] Furosemide [Lasix] 40 mg PO DAILY 08/19/18 [History Confirmed 08/19/18 Last Taken 08/14/18] Glimepiride [Amaryl] 2 mg PO BID 08/19/18 [History Confirmed 08/19/18 Last Taken 08/14/18] Lisinopril/Hctz 20/12.5MG [Zestoretic 20/12.5MG] 2 tab PO DAILY 08/19/18 [H istory Confirmed 08/19/18 Last Taken 08/14/18] Naproxen Sodium [All Day Pain Relief] 3 tab PO DAILY PRN 08/19/18 [History Confirmed 08/19/18 Last Taken 08/14/18] Nebivolol HCl [Bystolic] 20 mg PO DAILY 08/19/18 [History Confirmed 08/19/18 Last Taken 08/14/18] amLODIPine [Norvasc] 10 mg PO DAILY 08/19/18 [History Confirmed 08/19/18 Last Taken 08/14/18] metFORMIN [Glucophage] 1,000 mg PO BIDCC 08/19/18 [History Confirmed 08/19/18 Last Taken 08/19/18] Medical - DS: Hosp Hospital course: Mr. Oreilly is a 68 year old M with history of hypertension and diabetes presents to the emergency room for not feeling well, increased thirst weakness and polyuria that has been going on for the last 4 to 5 days. The patient is a resident of [place], he drove here 4 days ago, the patient notes that he has not been feeling well since, his symptoms are increased thirst, increased desire to pee, the patient also complains about abdominal pain for the last 3 to 4 days epigastric periumbilical in nature dull ache intermittent in nature nonradiating no aggravating relieving factors feels like he wants to eat something but thinks that if he tries to eat something he will vomit. The patient denies any fever chills some nausea if he tries to eat otherwise no vomiting last bowel movement 2 days ago is passing gas no cough no chest pain no shortness of breath no palpitations or dizziness no headache changes in vision no difficulty in swallowing no new skin rashes joint pains no depression or anxiety reported. He was seen by a new doctor in [place] according to him made some changes to his medications. He takes metformin for his diabetes as well as some blood pressure pills. On presentation to the emergency room patient was afebrile heart rate 140 blood pressure 146 oh 118 saturating 99% on room air chest x-ray was negative labs showed leukocytosis 18.7 hemoglobin 17.2 platelets 300 lactic acid 2.1 anion gap 28 sodium 130 potassium 5.7 bicarbonate 14 chloride 88 creatinine 1.2 glucose 517 by the hydroxybutyrate 7.01 Patient was given IV fluids started on insulin drip given some Cardizem and admitted to the hospital for further management 08/20 Patient seen examined, no acute ovenright issues, feels better feels hungry lactic acidosis resolved, anion gap closed, bet ahydroxybutyrate mildly elevated but significantly improved d/c insulin ggt and start on sq insulin. resume diet xfer to med surg 08/21 Patient seen examined, no acute issues, patient tolerating po diet well, His glucose is reasonably controlled will be discharged on sq lantus 30 units daily d/c glimepiride and lasix. Diabetes education if possible today close outpatient follow up with new PCP. Discharge diagnosis: DKA, - Time Spent with Patient Total time spent providing and/or coordinating discharge services: Greater than 30 minutes Medical - DS: Exam - Constitutional Vitals: Vital Signs Temp Pulse Resp BP BP BP BP 08/21/18 07:24 59 L 18 08/21/18 06:34 97.2 F 18 141/75 08/21/18 03:51 97 F 65 16 140/80 08/20/18 23:52 98.6 F 67 18 141/73 08/20/18 18:47 98.4 F 78 20 126/71 08/20/18 16:00 98.2 F 20 134/69 08/20/18 12:04 15 08/20/18 12:02 97.3 F 20 151/82 08/20/18 10:01 16 149/89 Pulse Ox 08/21/18 07:24 97 08/21/18 06:34 96 08/21/18 03:51 95 08/20/18 23:52 94 08/20/18 18:47 93 08/20/18 16:00 95 08/20/18 12:04 08/20/18 12:02 96 08/20/18 10:01 96 Intake and Output 08/20/18 08/21/18 08/21/18 21:59 05:59 13:59 Intake Total 1902 1750 840 Output Total 1450 350 Balance 1902 300 490 Intake: IV 752 1550 Sodium Chloride 0.9% 1,000 ml @ 702 1000 150 mls/hr IV .Q6H40M [facility] Rx#: [id number] Zosyn 3.375 gm In Dextrose 5% 50 50 in Water 50 ml @ 100 mls/hr IV Q6H [facility] Rx#:[id number] Vancomycin 1,500 mg In Sodium 500 Chloride 0.9% 500 ml @ 333.3 mls/hr IV Q12H [facility] Rx#: [id number] Oral 1150 200 840 Output: Void Amount 1450 350 Other: Meal Dinner yoghurt Breakfast Percent of Meal Consumed 100% 100% 100% Feeding Ability Independent Independent Urine Appearance Clear Urine Color Pale Straw Pale Urine Odor Normal Normal Stool Size Copious Stool Color Brown Stool Consistency Dry and Hard Formed # Voids 1 1 # Bowel Movements 1 Weight 280 lb Additional comments: Constitutional; Afebrile, cooperative, alert, not in distress. Respiratory system: Air Entry equal on both sides, No crackles or wheezing, no rhonchi. CVS- Rate rhythm regular, S1,S2 heard, no gallop, no rub. Abdomen- Soft nontender abdomen, no organomegaly, no tenderness, no guarding or rigidity, BATCH BLENDER- AOOx3, moving all extremities, no gross focal deficit noted. Medical - DS: Data Labs on day of discharge: Labs from last 24 hours 08/21/18 08/21/18 08/21/18 07:54 04:10 04:10 WBC 9.3 RBC 4.83 Hgb 15.0 Hct 45.7 MCV 94.6 MCH 31.1 MCHC 32.9 RDW 12.9 Plt Count 199 MPV 10.1 Gran % 52.9 Lymph % (Auto) 35.4 Bucks % (Auto) 8.8 Eos % (Auto) 2.3 Baso % (Auto) 0.6 Gran # 4.9 Lymph # (Auto) 3.3 Bucks # (Auto) 0.8 Eos # (Auto) 0.2 Baso # (Auto) 0.1 VBG Lactic Acid Sodium 137 Potassium 4.3 Chloride 102 Carbon Dioxide 22 Anion Gap 13.0 BUN 15 Creatinine 1.0 GFR Calculation 76 Glucose 261 H Uric Acid 2.4 L Calcium 8.5 L Phosphorus 3.2 Magnesium 1.9 Total Bilirubin 0.5 Direct Bilirubin < 0.2 GGT 14 AST 20 ALT 20 Alkaline Phosphatase 92 Lactate Dehydrogenase 205 Total Protein 5.9 Albumin 3.2 Globulin 2.7 Albumin/Globulin Ratio 1.2 Triglycerides 162 H Beta-Hydroxybutyrate Vancomycin Trough 13.5 08/20/18 08/20/18 08/20/18 09:16 09:16 09:16 WBC RBC Hgb Hct MCV MCH MCHC RDW Plt Count MPV Gran % Lymph % (Auto) Bucks % (Auto) Eos % (Auto) Baso % (Auto) Gran # Lymph # (Auto) Bucks # (Auto) Eos # (Auto) Baso # (Auto) VBG Lactic Acid 1.2 Sodium 135 Potassium 3.9 Chloride 99 Carbon Dioxide 23 Anion Gap 13.0 BUN 22 Creatinine 1.0 GFR Calculation 76 Glucose 215 H Uric Acid Calcium 8.3 L Phosphorus Magnesium Total Bilirubin Direct Bilirubin GGT AST ALT Alkaline Phosphatase Lactate Dehydrogenase Total Protein Albumin Globulin Albumin/Globulin Ratio Triglycerides Beta-Hydroxybutyrate 1.14 H Vancomycin Trough Preliminary micro results at discharge 08/19/18 14:38 Blood Culture - Preliminary Blood 08/19/18 14:32 Blood Culture - Preliminary Blood Medical - DS: A/P - Patient/Caregiver Discharge Instructions Activity: increase activity as tolerated Diet: Consistent Carbohydrate Additional Instructions: Keep self well hydrated Follow up with new PCP in 3-5 days. Check your glucose level every day, document your glucose values so that your new physician can adjust your medications/ insulin dose. Go to the ER if glucose values > 400 Stop Lasix and glimepiride Take your other medications as prescribed by your regular physician. GO to the ER if worsening condition, chest pain or any other acute concern. - Follow up Plan Disposition: Home, Self-Care Prognosis: Fair Rehab Potential: Fair I certify that the patient requires SNF services: No Overall status at discharge: patient is progressing back to baseline Medical - DS: Qual - VTE Deep Vein Thrombosis/Pulmonary Embolism Present on Admission: No
[2018-08-21] MEDS ORDERED: metFORMIN 500 MG TABLET PO SCH (17:30)
[2018-08-21] MEDS ORDERED: ATORVASTATIN 20 MG TABLET PO SCH (21:00)
== END 2018-08-21 19:54 | disposition home or self-care (01) | DRG 639 ==
LOC: ED 12:36 → ICU 15:45 → MEDSUR 08-20 16:01
PROVIDERS: ADMIT Internal Medicine; ATTEND Internal Medicine